=== PATIENT | female | born 1985 | race Caucasian/White ===

== ENCOUNTER 2017-02-13 15:28 | Emergency (ER) | payer OTHER ==
[2017-02-13 15:44] VITALS: RESP 18; TEMP 98.2; O2SAT 100
[2017-02-13 15:50] VITALS: BMI 33.2
[2017-02-13] MEDS ORDERED: Sodium Chloride 0.9% 1,000 ML IV STA (15:50)
--- NOTE | 2017-02-13 16:54 | ED PDOC ---
Arrival/HPI - General Chief Complaint: GI Problem Time Seen by Provider: 02/13/17 15:41 Historian: Patient - History of Present Illness Narrative History of Present Illness (Text): 02/13/17 16:51 31 year old female presents to the emergency department with nausea, vomiting, diarrhea, and low grade fever after eating shrimp yesterday. Patient reports fever of 100.9. She states she took Aleve at 08:00 today. She reports she has been drinking fluids but vomits shortly after. No recent travel, sick contacts, or rash. Patient reports non-radiating, intermittent, epigastric abdominal pain that feels acidic and achy. No other complaints at this time. PMD: Dr. Rojas Time/Duration: 24 hours Symptom Onset: Sudden Symptom Course: Unchanged Quality: Aching Past Medical History - Provider Review Nursing Documentation Reviewed: Yes - Past Medical History Past Medical History: No Previous - Psychiatric Hx Depression: No Hx Emotional Abuse: No Hx Physical Abuse: No Hx Substance Use: No - Past Surgical History Past Surgical History: No Previous - Anesthesia Hx Anesthesia: No Hx Anesthesia Reactions: No Hx Malignant Hyperthermia: No - Suicidal Assessment Feels Threatened In Home Enviroment: No Family/Social History - Physician Review Nursing Documentation Reviewed: Yes Family/Social History: Unknown Family HX Smoking Status: Never Smoked Hx Alcohol Use: No Hx Substance Use: No Hx Substance Use Treatment: No Allergies/Home Meds Allergies/Adverse Reactions: Allergies No Known Allergies Allergy (Verified 05/13/14 07:56) Home Medications: Home Meds Medication Instructions Recorded Confirmed Norethindrone-E.estradiol-Iron [Lo 1 tab PO DAILY 02/21/14 05/13/14 Loestrin Fe 10 Mcg-75 mg-1 mg] Review of Systems - Physician Review All systems were reviewed & negative as marked: Yes - Review of Systems Constitutional: Fevers (100.9) Respiratory: absent: SOB Cardiovascular: absent: Chest Pain Gastrointestinal: Abdominal Pain (epigastric), Diarrhea, Nausea, Vomiting Physical Exam Vital Signs Reviewed: Yes Vital Signs Temp Pulse Resp BP Pulse Ox 02/13/17 16:55 79 18 145/86 100 02/13/17 15:44 98.2 F 85 18 148/92 H 100 Temperature: Afebrile Blood Pressure: Normal Pulse: Regular Respiratory Rate: Normal Appearance: Positive for: Well-Appearing, Non-Toxic, Comfortable Pain Distress: None Mental Status: Positive for: Alert and Oriented X 3 - Systems Exam Head: Present: Atraumatic, Normocephalic Pupils: Present: PERRL Extroacular Muscles: Present: EOMI Conjunctiva: Present: Normal Mouth: Present: Moist Mucous Membranes Neck: Present: Normal Range of Motion Respiratory/Chest: Present: Clear to Auscultation, Good Air Exchange. No: Respiratory Distress, Accessory Muscle Use Cardiovascular: Present: Regular Rate and Rhythm, Normal S1, S2. No: Murmurs Abdomen: Present: Tenderness (epigastric with guarding), Normal Bowel Sounds, Guarding. No: Distention, Peritoneal Signs, Rebound, McBurney's Point Tender, Rovsing's Sign Present, Hernias Back: Present: Normal Inspection Upper Extremity: Present: Normal Inspection. No: Cyanosis, Edema Lower Extremity: Present: Normal Inspection. No: Edema Neurological: Present: GCS=15, CN II-XII Intact, Speech Normal Skin: Present: Warm, Dry, Normal Color. No: Rashes Psychiatric: Present: Alert, Oriented x 3, Normal Insight, Normal Concentration Medical Decision Making ED Course and Treatment: Impression: 31 year old female presents with nausea, vomiting, diarrhea, low grade fever, and abdominal pain after eating shrimp yesterday. Differential Diagnosis include but are not limited to: Gastritis vs gastroeneteritis vs pancreatitis Plan: -- Pepcid, Zofran -- IV fluids -- Labs -- Reassess and disposition Prior Visits: Notes and results from previous visits were reviewed. Patient last seen in ED on 05/13/14 for sore throat and discharged home. Progress Notes: 02/13/17 18:22 Patient feels better and no longer has symptoms. She was able to tolerate PO fluids in the ED without any vomiting or nausea. She no longer has abdominal pain. Abdomen is soft and not tender. No distension. She will go home with mom. - Lab Interpretations Lab Results: 02/13/17 16:55 02/13/17 16:55 Lab Results 02/13/17 16:55: Sodium 137, Potassium 3.5 L, Chloride 102, Carbon Dioxide 27, Anion Gap 12, BUN 11, Creatinine 0.6, Est GFR ( Amer) > 60, Est GFR (Non- Af Amer) > 60, Random Glucose 98, Calcium 8.5, Total Bilirubin 1.2, AST 37, ALT 26, Alkaline Phosphatase 76, Total Protein 7.7, Albumin 3.8, Globulin 3.8, Albumin/Globulin Ratio 1.0 L, Lipase 29 02/13/17 16:55: WBC 7.3, RBC 4.24, Hgb 12.8, Hct 38.1, MCV 89.9, MCH 30.2, MCHC 33.6, RDW 14.0, Plt Count 275, MPV 9.6, Neutrophils % (Manual) Pending, Lymphocytes % (Manual) Pending, Monocytes % (Manual) Pending I have reviewed the lab results: Yes Interpretation: All labs normal - Medication Orders Current Medication Orders: Discontinued Medications Famotidine (Pepcid) 20 mg IVP STAT STA Stop: 02/13/17 15:51 Last Admin: 02/13/17 17:00 Dose: 20 mg Sodium Chloride (Sodium Chloride 0.9%) 1,000 mls @ 1,000 mls/hr IV .Q1H STA Stop: 02/13/17 16:49 Last Admin: 02/13/17 17:00 Dose: 1,000 mls/hr Ondansetron HCl (Zofran Inj) 4 mg IVP STAT STA Stop: 02/13/17 15:51 Last Admin: 02/13/17 17:00 Dose: 4 mg Potassium Chloride (K-Dur 20 Meq Er Tab) 40 meq PO STAT STA Stop: 02/13/17 17:42 Last Admin: 02/13/17 18:01 Dose: 40 meq - Scribe Statement The provider has reviewed the documentation as recorded by the Johana Tolbert Provider Scribe Attestation: All medical record entries made by the Johana were at my direction and personally dictated by me. I have reviewed the chart and agree that the record accurately reflects my personal performance of the history, physical exam, medical decision making, and the department course for this patient. I have also personally directed, reviewed, and agree with the discharge instructions and disposition. Disposition/Present on Arrival - Present on Arrival Any Indicators Present on Arrival: No History of DVT/PE: No History of Uncontrolled Diabetes: No Urinary Catheter: No History of Decub. Ulcer: No History Surgical Site Infection Following: None - Disposition Have Diagnosis and Disposition been Completed?: Yes Diagnosis: Gastroenteritis Disposition: HOME/ ROUTINE Disposition Time: 18:24 Patient Plan: Discharge Patient Problems: Current Active Problems Problem Status Onset Gastroenteritis Acute Condition: IMPROVED Discharge Instructions (ExitCare): Gastroenteritis (DC) Additional Instructions: Ms Fernández, thank you for letting us take care of you today. Your provider was Dr. Hargrove. You were treated for Abdominal Pain, Gastroenteritis. The emergency medical care you received today was directed at your acute symptoms. If you were prescribed any medication, please fill it and take as directed. It may take several days for your symptoms to resolve. Return to the Emergency Department if your symptoms worsen, do not improve, or if you have any other problems. Please contact your doctor or call one of the physicians/clinics you have been referred to that are listed on the Patient Visit Information form that is included in your discharge packet. Bring any paperwork you were given at discharge with you along with any medications you are taking to your follow up visit. Our treatment cannot replace ongoing medical care by a primary care provider (PCP) outside of the emergency department. Thank you for allowing the [facility] team to be part of your care today. If you had an X-Ray or CT scan: A Radiologist will review the ED reading if any change in treatment is needed we will contact you. If you had a blood, urine, or wound culture: It will take several days for the results, if any change in treatment is needed we will contact you. If you had an STI test: It will take 48 hours for the results. Please call after 1 week if you have not heard back. Prescriptions: Ondansetron ODT [Zofran ODT] 4 mg PO Q6 #14 odt Ranitidine HCl [Zantac] 150 mg PO BID PRN #30 tablet PRN Reason: Pain, Mild (1-3) Referrals: Leticia Wagoner MD [Primary Care Provider] - Follow up with primary Forms: WORK NOTE
[2017-02-13 17:12] LABS: HEMATOCRIT 38.1 % (36.0-48.0); MEAN CELL VOLUME 89.9 fL (80.0-105.0); MEAN CORPUSCULAR HEMOGLOBIN 30.2 pg (25.0-35.0); MEAN CORPUSCULAR HGB CONC 33.6 g/dl (31.0-37.0); MEAN PLATELET VOLUME 9.6 fl (7.0-11.0); PLATELET COUNT 275 10^3/uL (120.0-450.0); WHITE BLOOD COUNT 7.3 10^3/ul (4.5-11.0)
[2017-02-13 17:20] LABS: ADD MANUAL DIFF? YES
[2017-02-13 17:23] LABS: ALKALINE PHOSPHATASE 76 U/L (38-133); ALT/SGPT 26 U/L (7-56); AST/SGOT 37 U/L (15-39); BILIRUBIN,TOTAL 1.2 mg/dL (0.2-1.3); BLOOD UREA NITROGEN 11 mg/dL (7-21); CALCIUM 8.5 mg/dL (8.4-10.5); CARBON DIOXIDE 27 mmol/L (21-33); CHLORIDE 102 mmol/L (98-107); GFR AFRICAN-AMERICAN > 60; GLUCOSE,RANDOM 98 mg/dL (70-110); LIPASE 29 U/L (23-300); POTASSIUM 3.5 mmol/L (3.6-5.0); SODIUM 137 mmol/L (132-148); TOTAL PROTEIN 7.7 g/dL (5.8-8.3)
[2017-02-13] MEDS ORDERED: Potassium Chloride 20 mEq ER Tab PO STA (17:41)
[2017-02-13 18:28] VITALS: BP 143/79; PULSE 71
[2017-02-13 19:25] LABS: BAND 9 % (0-2); NEUTROPHIL 68 % (50.0-70.0); PLATELET ESTIMATE NORMAL (NORMAL)
== END 2017-02-13 18:25 | disposition home or self-care (01) ==
LOC: ED 15:28
DX: K52.9 Noninfective gastroenteritis and colitis, unspecified (principal)
CPT/HCPCS: 80053; 83690; 85025; 96374; 96375; 99284; J2405; J7040

== ENCOUNTER 2017-09-24 15:06 | Emergency (ER) | payer OTHER ==
[2017-09-24 15:15] VITALS: BMI 36.1
[2017-09-24 15:18] VITALS: TEMP 98
[2017-09-24] MEDS ORDERED: Morphine 4 mg/ml ISec IVP STA (15:29)
[2017-09-24] MEDS ORDERED: Sodium Chloride 0.9% 1,000 ML IV STA (15:30)
[2017-09-24 15:37] VITALS: O2SAT 98
--- NOTE | 2017-09-24 15:37 | ED PDOC ---
Arrival/HPI - General Chief Complaint: Female Genitourinary Time Seen by Provider: 09/24/17 15:08 Historian: Patient - History of Present Illness Narrative History of Present Illness (Text): 09/24/17 15:31 32yo female who present with complaint of crampy abdominal pain with associated nausea/vomiting since early this morning. States she was seen at [facility] yesterday for vaginal spotting and told she have threatened . She started having heavy vaginal bleeding with clot at 0400am and then abdominal crampy pain started. states she took 2tabs of Aleve this afternoon without relieve. she denies dizziness, diarrhea, constipation, chest pain, focal weakness, urinary symptoms. Past Medical History - Provider Review Nursing Documentation Reviewed: Yes - Infectious Disease Hx of Infectious Diseases: None - Past Medical History Past Medical History: No Previous - Psychiatric Hx Depression: No Hx Substance Use: No - Past Surgical History Past Surgical History: No Previous - Anesthesia Hx Anesthesia: No Hx Anesthesia Reactions: No Hx Malignant Hyperthermia: No - Suicidal Assessment Feels Threatened In Home Enviroment: No Family/Social History - Physician Review Nursing Documentation Reviewed: Yes Family/Social History: Unknown Family HX Smoking Status: Never Smoked Hx Alcohol Use: No Hx Substance Use: No Hx Substance Use Treatment: No Allergies/Home Meds Allergies/Adverse Reactions: Allergies No Known Allergies Allergy (Verified 09/24/17 15:14) Review of Systems - Physician Review All systems were reviewed & negative as marked: Yes - Review of Systems Constitutional: Normal Eyes: Normal ENT: Normal Respiratory: Normal Cardiovascular: Normal Gastrointestinal: Abdominal Pain, Nausea, Vomiting. absent: Constipation, Diarrhea, Hematochezia, Hematemesis Genitourinary Female: Normal Musculoskeletal: Normal Skin: Normal Neurological: Normal Endocrine: Normal Hemo/Lymphatic: Normal Psychiatric: Normal Physical Exam Vital Signs Reviewed: Yes Vital Signs Temp Pulse Resp BP Pulse Ox 09/24/17 17:28 91 H 18 138/79 98 09/24/17 15:30 100 H 16 141/88 98 09/24/17 15:17 98.0 F 97 H 17 115/77 99 Temperature: Afebrile Blood Pressure: Normal Pulse: Regular Respiratory Rate: Normal Appearance: Positive for: Well-Appearing, Non-Toxic, Comfortable Pain Distress: None Mental Status: Positive for: Alert and Oriented X 3 - Systems Exam Head: Present: Atraumatic, Normocephalic Pupils: Present: PERRL Extroacular Muscles: Present: EOMI Conjunctiva: Present: Normal Mouth: Present: Moist Mucous Membranes Neck: Present: Normal Range of Motion Respiratory/Chest: Present: Clear to Auscultation, Good Air Exchange. No: Respiratory Distress, Accessory Muscle Use Cardiovascular: Present: Regular Rate and Rhythm, Normal S1, S2. No: Murmurs Abdomen: Present: Tenderness (Diffuse), Normal Bowel Sounds, Other (soft). No: Distention, Peritoneal Signs, Rebound, Guarding, McBurney's Point Tender, Rovsing's Sign Present Back: Present: Normal Inspection Upper Extremity: Present: Normal Inspection. No: Cyanosis, Edema Lower Extremity: Present: Normal Inspection. No: Edema Neurological: Present: GCS=15, CN II-XII Intact, Speech Normal Skin: Present: Warm, Dry, Normal Color. No: Rashes Psychiatric: Present: Alert, Oriented x 3, Normal Insight, Normal Concentration Medical Decision Making ED Course and Treatment: 09/24/17 16:34 32yo female in ED for abdominal crampy pain, n/v and vaginal bleeding. Labs ordered 1L NS, Zofran 4mg, Morphine 4mg ordered Will reassess and dispo Pt was seen at [facility]. The chart from yesterday was reviewed and US showed 7weeks IUP without pole or yolk sac. She was advised to return to ED tomorrow or f/u with her OB for a repeat beta quant. she however presented today secondary to the pain. she was hemodynamically stable and in moderate pain. Her pain improved in ED with medication. Her beta quant compared to the one that was done yesterday was 50% less. Her lab was otherwise unremarkable. Result was DW the pt. She will be ED home with a rx of Ibuprofen 600mg. Advised to drink plenty of fluid and rest. Advised to f/u with her OB within a week for another beta quant. TRT ED for any new or worsening symptoms. - Lab Interpretations Lab Results: 09/24/17 15:51 09/24/17 15:51 Lab Results 09/24/17 15:51: Beta HCG, Quant 3271.80 H 09/24/17 15:51: Sodium 138, Potassium 3.8, Chloride 100, Carbon Dioxide 25, Anion Gap 17, BUN 10, Creatinine 0.7, Est GFR ( Amer) > 60, Est GFR (Non- Af Amer) > 60, Random Glucose 121 H, Calcium 9.4, Total Bilirubin 0.6, AST 24, ALT 31, Alkaline Phosphatase 94, Total Protein 7.9, Albumin 4.3, Globulin 3.6, Albumin/Globulin Ratio 1.2 09/24/17 15:51: PT 12.8 H, INR 1.17 H, APTT 25.9 09/24/17 15:51: WBC 9.9 D, RBC 4.55, Hgb 13.6, Hct 41.0, MCV 90.1, MCH 29.9, MCHC 33.2, RDW 13.9, Plt Count 296, MPV 9.4, Gran % 83.2 H, Lymph % (Auto) 11.0 L, Dewey % (Auto) 5.6, Eos % (Auto) 0.1 L, Baso % (Auto) 0.1, Gran # 8.21 H, Lymph # 1.1 L, Dewey # 0.6, Eos # 0.0, Baso # 0.01 - Medication Orders Current Medication Orders: Discontinued Medications Sodium Chloride (Sodium Chloride 0.9%) 1,000 mls @ 999 mls/hr IV .Q1H1M STA Stop: 09/24/17 16:30 Last Admin: 09/24/17 15:57 Dose: 999 mls/hr eMAR Start Stop Document 09/24/17 15:57 EQ (Rec: 09/24/17 15:57 EQ [id number]) Intravenous Solution Start Date 09/24/17 Start Time 15:57 Morphine Sulfate (Morphine) 4 mg IVP STAT STA Stop: 09/24/17 15:30 Last Admin: 09/24/17 15:57 Dose: 4 mg MAR Pain Assessment Document 09/24/17 15:57 EQ (Rec: 09/24/17 15:57 EQ [id number]) Pain Reassessment Is this a pain reassessment? No Sleep Is patient sleeping during reassessment? No Presence of Pain Presence of Pain Yes Pain Scale Used Pain Scale Used Numeric IVP Administration Document 09/24/17 15:57 EQ (Rec: 09/24/17 15:57 EQ [id number]) Charges for Administration # of IVP Administrations 1 Ondansetron HCl (Zofran Inj) 4 mg IVP STAT STA Stop: 09/24/17 15:30 Last Admin: 09/24/17 15:57 Dose: 4 mg IVP Administration Document 09/24/17 15:57 EQ (Rec: 09/24/17 15:57 EQ [id number][place] Charges for Administration # of IVP Administrations 1 Tramadol HCl (Ultram) 50 mg PO STAT STA Stop: 09/24/17 17:27 Disposition/Present on Arrival - Present on Arrival Any Indicators Present on Arrival: No History of DVT/PE: No History of Uncontrolled Diabetes: No Urinary Catheter: No History of Decub. Ulcer: No History Surgical Site Infection Following: None - Disposition Have Diagnosis and Disposition been Completed?: Yes Diagnosis: Spontaneous Disposition Time: 17:40 Patient Plan: Discharge Patient Problems: Current Active Problems Problem Status Onset Spontaneous Acute Condition: STABLE Discharge Instructions (ExitCare): Spontaneous Miscarriage (ED) Additional Instructions: Follow up with your OB within a week for a repeat beta quant Return to ED for an Prescriptions: Naproxen [Naprosyn] 500 mg PO BID #20 tablet Ondansetron ODT [Zofran ODT] 4 mg PO Q6 #8 odt Referrals: Lizz Chavez MD [Primary Care Provider] - Follow up with primary Forms: [employer] ([place])
[2017-09-24 15:58] LABS: BASO # 0.01 K/mm3 (0.0-2.0); BASO % 0.1 % (0.0-3.0); EOS % 0.1 % (1.5-5.0); GRAN # 8.21 (1.4-6.5); GRAN % 83.2 % (50.0-68.0); LYMPH # 1.1 (1.2-3.4); MEAN CELL VOLUME 90.1 fl (80.0-105.0); MEAN CORPUSCULAR HEMOGLOBIN 29.9 pg (25.0-35.0); MEAN CORPUSCULAR HGB CONC 33.2 g/dl (31.0-37.0); MEAN PLATELET VOLUME 9.4 fl (7.0-11.0); MONO # 0.6 (0.1-0.6); MONO % 5.6 % (1.0-6.0); RED CELL DISTRIBUTION WIDTH 13.9 % (11.5-14.5); WHITE BLOOD COUNT 9.9 10^3/ul (4.5-11.0)
[2017-09-24 16:07] LABS: ALB/GLOB RATIO 1.2 (1.1-1.8); ALKALINE PHOSPHATASE 94 U/L (38-126); ALT/SGPT 31 U/L (7-56); AST/SGOT 24 U/L (14-36); BILIRUBIN,TOTAL 0.6 mg/dL (0.2-1.3); BLOOD UREA NITROGEN 10 mg/dL (7-21); CALCIUM 9.4 mg/dL (8.4-10.5); CARBON DIOXIDE 25 mmol/L (21-33); CHLORIDE 100 mmol/L (98-107); GFR AFRICAN-AMERICAN > 60; GLUCOSE,RANDOM 121 mg/dL (70-110); POTASSIUM 3.8 mmol/L (3.6-5.0); SODIUM 138 mmol/L (132-148); TOTAL PROTEIN 7.9 g/dL (5.8-8.3)
[2017-09-24 16:18] LABS: INR 1.17 (0.93-1.08); PARTIAL THROMBOPLASTIN TIME 25.9 Seconds (25.1-36.5)
[2017-09-24 17:28] VITALS: BP 138/79; PULSE 91; RESP 18
== END 2017-09-24 18:05 | disposition home or self-care (01) ==
LOC: ED 15:06
DX: O03.9 Complete or unspecified spontaneous abortion without complication (principal)
CPT/HCPCS: 80053; 84702; 85025; 85610; 85730; 96374; 96375; 96376; 99283; J1885; J2270; J2405; J7040